=== PATIENT | male | born 1965 | race African-American/Black ===

== ENCOUNTER 2017-10-27 12:25 | Emergency (ER) | payer OTHER ==
[2017-10-27] MEDS ORDERED: TAMSULOSIN HCL 0.4 MG CAP.SR.24H PO ONE (13:53)
[2017-10-27 14:01] LABS: APPEARANCE,URINE CLEAR; BILIRUBIN,URINE NEGATIVE (NEGATIVE); COLOR,URINE YELLOW; GLUCOSE, URINE NEGATIVE (NEGATIVE); KETONES,URINE NEGATIVE (NEGATIVE); LEUKOCYTE ESTERASE,URINE NEGATIVE (NEGATIVE); NITRITE,URINE NEGATIVE (NEGATIVE); PROTEIN,URINE 30 mg/dL (NEGATIVE); URINE SPECIFIC GRAVITY 1.014; UROBILINOGEN,URINE NEGATIVE mg/dL (<2.0)
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
[2017-10-27 15:01] VITALS: BP 143/65
== END 2017-10-27 15:01 | disposition home or self-care (01) ==
LOC: EDBD → ER 12:25
DX: R33.9 Retention of urine, unspecified (principal); R10.9 Unspecified abdominal pain
CPT/HCPCS: 51702; 81001; 87086; 99284